=== PATIENT | female | born 1980 | race Hispanic/Latino ===

== ENCOUNTER 2017-11-22 02:07 | Emergency (ER) | payer OTHER ==
[2017-11-22 02:56] LABS: Absolute Lymphocytes (CBC) 5.6 K/uL (0.7-4.9); Absolute Monocytes 0.7 K/uL (0.1-1.3); Absolute Neutrophil 6.7 K/uL (1.8-8.0); Basophils % 0.9 % (0-1.3); Eosinophils % 2.7 % (0-4.4); Hematocrit 32.7 % (36.0-45.0); Lymphocytes % 41.7 % (15.3-44.8); MCH 24.8 pg (27.0-35.0); MCV 78.7 fL (80-100); MPV 7.3 fL (7.6-11.3); Monocytes % 5.5 % (3.3-12.3); RBC Red Blood Cell Count 4.16 M/uL (3.86-4.86)
[2017-11-22] MEDS ORDERED: NA CHLORIDE 0.9% 1,000 ML ONE ×2 (02:56→04:27)
[2017-11-22 03:10] LABS: Albumin 4.1 g/dL (3.2-5.5); Bilirubin Total 0.2 mg/dL (0.3-1.2); Protein, Total 7.5 g/dL (6.0-8.3)
[2017-11-22] MEDS ORDERED: MORPHINE 4 MG/ML SYR ONE (03:33)
[2017-11-22] MEDS ORDERED: ONDANSETRON 4 MG/2 ML VIAL ONE (03:33)
[2017-11-22 04:21] LABS: Potassium 2.9 mEq/L (3.6-5.0)
[2017-11-22] MEDS ORDERED: POTASSIUM CL SA 10 MEQ TAB PO ONE (04:27)
--- NOTE | 2017-11-22 05:06 | EDPHYS ---
Physician Documentation [facility] Name: Shelby Schaefer Age: 37 yrs Sex: Female : 1980 Arrival Date: 11/22/2017 Time: 02:08 Bed 20 Private MD: ED Physician Mansoor Benoit HPI: 11/22 06:10 This 37 yrs old Female presents to ER via Ambulatory with complaints of tw4 Vaginal Bleeding. 06:11 The patient presents with vaginal bleeding that is heavy. Onset: The symptoms/episode tw4 began/occurred 2 week(s) ago. Modifying factors: The symptoms are alleviated by nothing, the symptoms are aggravated by nothing. Associated signs and symptoms: The patient has no apparent associated signs or symptoms. Severity of symptoms: At their worst the symptoms were moderate, in the emergency department the symptoms are unchanged. The patient has not experienced similar symptoms in the past. 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 - Social history:: Smoking status: Patient/guardian denies using tobacco, Patient/guardian denies using alcohol, street drugs. ROS: 06:11 Positive for vaginal bleeding, Negative for urinary frequency, hematuria, pelvic tw4 pain, flank pain, burning with urination, difficulty urinating, vaginal itching, menstrual abnormality. 06:11 Constitutional: Negative for fever, chills, and weight loss, Cardiovascular: Negative for chest pain, palpitations, and edema, Respiratory: Negative for shortness of breath, cough, wheezing, and pleuritic chest pain, Abdomen/GI: Negative for abdominal pain, nausea, vomiting, diarrhea, and constipation, MS/Extremity: Negative for injury and deformity, Skin: Negative for injury, rash, and discoloration. Exam: 06:11 Constitutional: This is a well developed, well nourished patient who is awake, alert, tw4 and in no acute distress. Head/Face: Normocephalic, atraumatic. Chest/axilla: Normal chest wall appearance and motion. Nontender with no deformity. No lesions are appreciated. Cardiovascular: Regular rate and rhythm with a normal S1 and S2. No gallops, murmurs, or rubs. Normal PMI, no JVD. No pulse deficits. Respiratory: Lungs have equal breath sounds bilaterally, clear to auscultation and percussion. No rales, rhonchi or wheezes noted. No increased work of breathing, no retractions or nasal flaring. Abdomen/GI: Soft, non-tender, with normal bowel sounds. No distension or tympany. No guarding or rebound. No evidence of tenderness throughout. MS/ Extremity: Pulses equal, no cyanosis. Neurovascular intact. Full, normal range of motion. Neuro: Awake and alert, GCS 15, oriented to person, place, time, and situation. Cranial nerves II-XII grossly intact. Motor strength 5/5 in all extremities. Sensory grossly intact. Cerebellar exam normal. Normal gait. Vital Signs: 02:35 BP 161 / 79; Pulse 83; Resp 20 S; Temp 98.5(O); Pulse Ox 97% on R/A; Weight 67.13 kg bb (R); Height 5 ft. 4 in. (162.56 cm) (R); Pain 0/10; 03:40 BP 122 / 96; Pulse 88; Resp 18 S; Pulse Ox 98% on R/A; Pain 8/10; jd3 03:58 Pain 0/10; jd3 04:10 BP 145 / 84 Supine; Pulse 77; Pulse Ox 100% on R/A; jd3 04:13 BP 152 / 90 Sitting; Pulse 86; Pulse Ox 100% on R/A; jd3 04:15 BP 160 / 69 Standing; Pulse 90; Resp 17 S; Pulse Ox 100% on R/A; Pain 0/10; jd3 05:30 BP 141 / 73; Pulse 87; Resp 17 S; Pulse Ox 100% on R/A; Pain 0/10; jd3 02:35 Body Mass Index 25.40 (67.13 kg, 162.56 cm) bb MDM: 02:31 Patient medically screened. tw4 06:11 Differential diagnosis: dysmenorrhea. Data reviewed: vital signs, nurses notes. Data tw4 interpreted: satellite project site monitor: rhythm is normal sinus rhythm. Counseling: I had a detailed discussion with the patient and/or guardian regarding: the historical points, exam findings, and any diagnostic results supporting the discharge/admit diagnosis. Counseling: I had a detailed discussion with the patient and/or guardian regarding: lab results. Special discussion: Based on the patient's Hx, exam, and Dx evaluation, there is no indication for emergent surgery or inpatient Tx. It is understood by the patient/guardian that if the Sx's persist or worsen they need to return immediately for re-evaluation. I discussed with the patient/guardian in detail that at this point there is no indication for admission to the hospital. It is understood, however, that if the symptoms persist or worsen the patient needs to return immediately for re-evaluation. 11/22 02:31 Order name: CBC with Diff tw4 11/22 02:31 Order name: CMP tw4 11/22 02:31 Order name: PT-INR; Complete Time: 05:04 tw4 11/22 02:31 Order name: Ptt, Activated; Complete Time: 05:04 tw4 11/22 02:31 Order name: CBC with Automated Diff; Complete Time: 03:46 EDMS 11/22 03:46 Interpretation: Abnormal: WBC 13.5; HGB 10.3; HCT 32.7; MCV 78.7; MCH 24.8; MCHC 31.5; tw4 PLT 427; RDW 17.3; MPV 7.3; LYMA 5.6. 11/22 02:31 Order name: Comprehensive Metabolic Panel; Complete Time: 05:04 EDMS 11/22 05:04 Interpretation: Normal except: GLUC 145; GFR 84; BILIT 0.2; K 2.9. tw4 11/22 02:37 Order name: IV Saline Lock; Complete Time: 02:52 jd3 Administered Medications: 03:04 Drug: NS 0.9% 1000 ml Route: IV; Rate: 1 bolus; Site: right antecubital; jd3 05:29 Follow up: Response: No adverse reaction; IV Status: Completed infusion; IV Intake: jd3 1000ml 03:40 Drug: morphine 2 mg Route: IVP; Site: right antecubital; jd3 03:58 Follow up: Pain 0/10 Adult; Response: No adverse reaction; Pain is decreased jd3 03:40 Drug: Zofran 4 mg Route: IVP; Site: right antecubital; jd3 03:58 Follow up: Response: No adverse reaction jd3 04:36 Drug: Potassium Chloride 40 mEq Route: PO; jd3 05:20 Follow up: Response: No adverse reaction jd3 04:36 Drug: NS 0.9% 1000 ml Route: IV; Rate: 1 bolus; Site: right antecubital; jd3 05:21 Follow up: Response: No adverse reaction; IV Status: Completed infusion; IV Intake: jd3 1000ml Disposition: 11/22/17 05:06 Discharged to Home. Impression: Dysmenorrhea, unspecified, Hypokalemia. - Condition is Stable. - Discharge Instructions: Anemia, Nonspecific, Potassium Content of Foods, Dysmenorrhea, Dysmenorrhea, [id number], Hypokalemia. - Medication Reconciliation Form, Thank You Letter, Antibiotic Education, Prescription Opioid Use form. - Follow up: Private Physician; When: As needed; Reason: Recheck today's complaints, Continuance of care, Re-evaluation by your physician. - Problem is new. - Symptoms have improved. Signatures: Dispatcher [employer] Herminia Burns RN RN bb Davies, Jonathon, RN RN jd3 Wadley, Terrence, MD MD 4 Corrections: (The following items were deleted from the chart) 03:47 03:46 WBC 13.5; HGB 10.3; HCT 32.7; MCV 78.7; MCH 24.8; MCHC 31.5; PLT 427; RDW 17.3; tw4 MPV 7.3; LYMA 5.6. tw4 03:47 03:46 Normal except: WBC 13.5; HGB 10.3; HCT 32.7; MCV 78.7; MCH 24.8; MCHC 31.5; PLT tw4 427; RDW 17.3; MPV 7.3; LYMA 5.6. tw4 05:04 05:04 GLUC 145; GFR 84; BILIT 0.2; K 2.9. tw4 4
--- NOTE | 2017-11-22 05:06 | ER ---
Nurse's Notes [facility] Name: Shelby Schaefer Age: 37 yrs Sex: Female : 1980 Arrival Date: 11/22/2017 Time: 02:08 Bed 20 Private MD: Diagnosis: Dysmenorrhea, unspecified;Hypokalemia Presentation: 11/22 02:31 Presenting complaint: Patient states: she has been having vaginal bleeding for 2 weeks bb but tonight it became unusually heavy with clots the size of her fist she has changed her pad 5 times in the last 3 hours. Pt became sweaty, and shaky, pt also had depo shot approx 2 weeks ago. Transition of care: patient was not received from another setting of care. Onset of symptoms was November 22, 2017. Care prior to arrival: None. 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 - Social history:: Smoking status: Patient/guardian denies using tobacco, Patient/guardian denies using alcohol, street drugs. Screenin:00 Abuse screen: Denies threats or abuse. Nutritional screening: No deficits noted. jd3 Tuberculosis screening: No symptoms or risk factors identified. Fall Risk IV access (20 points). Gait- Normal/Bed Rest/Wheelchair (0 pts) Total Mcghee Fall Scale indicates No Risk (0-24 pts). Assessment: 02:35 General: Appears uncomfortable, Behavior is cooperative, appropriate for age, anxious. jd3 Pain: Complains of pain in right lower quadrant Quality of pain is described as crampy. Neuro: Level of Consciousness is awake, alert, obeys commands, Oriented to person, place, time, situation, Appropriate for age. Cardiovascular: Heart tones S1 S2 present Capillary refill < 3 seconds Patient's skin is warm and dry. Respiratory: Airway is patent Respiratory effort is even, unlabored, Respiratory pattern is regular, symmetrical, Breath sounds are clear bilaterally. GI: Abdomen is round Bowel sounds present X 4 quads. Abd is soft Abdomen is tender to palpation in right lower quadrant Reports nausea. : Urine is blood tinged, Reports vaginal bleeding that is with clots, heavy flow. EENT: No signs and/or symptoms were reported regarding the EENT system. Derm: Skin is intact, Skin is dry, Skin is normal, Skin temperature is warm. Musculoskeletal: Circulation, motion, and sensation intact. Range of motion: intact in all extremities. 03:40 Reassessment: Patient appears in no apparent distress at this time. Patient and/or jd3 family updated on plan of care and expected duration. Pain level reassessed. Patient is alert, oriented x 3, equal unlabored respirations, skin warm/dry/pink. pt reporting abdominal pain, provider notified, new orders received, see MAR. 04:00 Reassessment: Patient appears in no apparent distress at this time. Patient and/or jd3 family updated on plan of care and expected duration. Pain level reassessed. Patient is alert, oriented x 3, equal unlabored respirations, skin warm/dry/pink. Patient denies pain at this time. 04:23 Reassessment: Patient appears in no apparent distress at this time. Patient and/or jd3 family updated on plan of care and expected duration. Pain level reassessed. Patient is alert, oriented x 3, equal unlabored respirations, skin warm/dry/pink. Patient denies pain at this time. 05:10 Reassessment: Patient appears in no apparent distress at this time. Patient and/or jd3 family updated on plan of care and expected duration. Pain level reassessed. Patient is alert, oriented x 3, equal unlabored respirations, skin warm/dry/pink. provider at bedside discussing plan of care. 05:28 Reassessment: Patient appears in no apparent distress at this time. Patient and/or jd3 family updated on plan of care and expected duration. Pain level reassessed. Patient is alert, oriented x 3, equal unlabored respirations, skin warm/dry/pink. pt reported understanding of discharge instructions, even and steady gait upon discharge Patient states feeling better. Vital Signs: 02:35 BP 161 / 79; Pulse 83; Resp 20 S; Temp 98.5(O); Pulse Ox 97% on R/A; Weight 67.13 kg bb (R); Height 5 ft. 4 in. (162.56 cm) (R); Pain 0/10; 03:40 BP 122 / 96; Pulse 88; Resp 18 S; Pulse Ox 98% on R/A; Pain 8/10; jd3 03:58 Pain 0/10; jd3 04:10 BP 145 / 84 Supine; Pulse 77; Pulse Ox 100% on R/A; jd3 04:13 BP 152 / 90 Sitting; Pulse 86; Pulse Ox 100% on R/A; jd3 04:15 BP 160 / 69 Standing; Pulse 90; Resp 17 S; Pulse Ox 100% on R/A; Pain 0/10; jd3 05:30 BP 141 / 73; Pulse 87; Resp 17 S; Pulse Ox 100% on R/A; Pain 0/10; jd3 02:35 Body Mass Index 25.40 (67.13 kg, 162.56 cm) bb ED Course: 02:08 Patient arrived in ED. am2 02:31 Mansoor Benoit MD is Attending Physician. tw4 02:34 Triage completed. bb 02:35 Arm band placed on Patient placed in an exam room, on a stretcher, on pulse oximetry. bb Family accompanied patient. 02:37 Jairon Stern, RN is Primary Nurse. jd3 02:45 Inserted saline lock: 20 gauge in right antecubital area, using aseptic technique. jd3 Blood collected. 03:00 Patient has correct armband on for positive identification. Bed in low position. Call jd3 light in reach. Side rails up X 1. Adult w/ patient. 03:05 Noise minimized. Lights dimmed. Warm blanket given. Verbal reassurance given. jd3 04:28 Notified ED physician of a critical lab result(s). potassium of 2.9. jd3 05:10 No provider procedures requiring assistance completed. jd3 05:28 IV discontinued, intact, bleeding controlled, No redness/swelling at site. Pressure jd3 dressing applied. Administered Medications: 03:04 Drug: NS 0.9% 1000 ml Route: IV; Rate: 1 bolus; Site: right antecubital; jd3 05:29 Follow up: Response: No adverse reaction; IV Status: Completed infusion; IV Intake: jd3 1000ml 03:40 Drug: morphine 2 mg Route: IVP; Site: right antecubital; jd3 03:58 Follow up: Pain 0/10 Adult; Response: No adverse reaction; Pain is decreased jd3 03:40 Drug: Zofran 4 mg Route: IVP; Site: right antecubital; jd3 03:58 Follow up: Response: No adverse reaction jd3 04:36 Drug: Potassium Chloride 40 mEq Route: PO; jd3 05:20 Follow up: Response: No adverse reaction jd3 04:36 Drug: NS 0.9% 1000 ml Route: IV; Rate: 1 bolus; Site: right antecubital; jd3 05:21 Follow up: Response: No adverse reaction; IV Status: Completed infusion; IV Intake: jd3 1000ml Intake: 05:21 IV: 1000ml; Total: 1000ml. jd3 05:29 IV: 1000ml; Total: 2000ml. jd3 Outcome: 05:06 Discharge ordered by . tw4 05:27 Discharged to home ambulatory, with family. jd3 05:27 Condition: stable 05:27 Discharge instructions given to patient, family, Instructed on discharge instructions, follow up and referral plans. Demonstrated understanding of instructions, follow-up care. 05:29 Patient left the ED. jd3 Signatures: Herminia Marin RN RN Bianca Orellana Jonathon, RN RN jd3 Mansoor Benoit MD MD tw4 Corrections: (The following items were deleted from the chart) 02:37 02:31 Presenting complaint: Patient states: she has been having vaginal bleeding for 2 bb weeks but tonight it became unusually heavy with clots the size of her fist she has changed her pad 5 times in the last 3 hours. Pt became sweaty, and shaky. bb 04:23 04:13 BP 160 / 69 Standing; Pulse 90bpm; Resp 17bpm; Spontaneous; Pulse Ox 100% RA; jd3 Pain 0/10; jd3 04:23 04:13 BP 152 / 90 Sitting; Pulse 86bpm; Pulse Ox 100% RA; jd3 jd3
== END 2017-11-22 05:29 | disposition home or self-care (01) ==
LOC: ER 02:07
DX: N94.6 Dysmenorrhea, unspecified (principal); E87.6 Hypokalemia
CPT/HCPCS: 36415; 80053; 85025; 85610; 85730; 96361; 96374; 96375; 99284; J2405; J7030

== ENCOUNTER 2018-04-13 06:21 | Day surgery (SDC) | payer OTHER ==
[2018-04-10 16:22] LABS: Urine Appearance TURBID; Urine Bilirubin NEGATIVE (NEG); Urine Blood NEGATIVE (NEG); Urine Color YELLOW; Urine Glucose NEGATIVE (NEG); Urine Protein NEGATIVE (NEG); Urine Urobilinogen 0.2 mg/dL (0.2-1.0); Urine pH 7.5 (5.0-7.0)
[2018-04-10 16:25] LABS: Urine Microscopic Reflex ORDER UMIC
[2018-04-10 16:31] LABS: Urine Amorphous Sediment 3+ /HPF (NONE SEEN); Urine Bacteria <20 /HPF (<20); Urine Culture Reflex Order NOT NEEDED; Urine RBC NONE SEEN /HPF (NONE SEEN)
[2018-04-10 16:35] LABS: Absolute Lymphocytes (CBC) 2.8 K/uL (0.7-4.9); Absolute Monocytes 0.8 K/uL (0.1-1.3); Absolute Neutrophil 9.3 K/uL (1.8-8.0); Basophils % 0.6 % (0-1.3); Eosinophils % 1.6 % (0-4.4); Hematocrit 34.7 % (36.0-45.0); Lymphocytes % 21.4 % (15.3-44.8); MCH 27.8 pg (27.0-35.0); MCV 85.2 fL (80-100); MPV 7.2 fL (7.6-11.3); Monocytes % 5.7 % (3.3-12.3); RBC Red Blood Cell Count 4.07 M/uL (3.86-4.86)
[2018-04-13] MEDS ORDERED: Ringers Lactate 1,000 ML IV ONE (06:43)
[2018-04-13] MEDS ORDERED: SCOPOLAMINE HYDROBROMIDE PATCH TD ONE (06:44)
[2018-04-13 06:45] LABS: Specific Gravity 1.015 (1.005-1.030)
[2018-04-13] MEDS ORDERED: MIDAZOLAM HCL 2 MG/2 ML INJ ONE ×2 (07:10→11:50)
[2018-04-13] MEDS ORDERED: FENTANYL CITR 250 MCG/5 ML ONE ×2 (07:10→09:32)
[2018-04-13] MEDS ORDERED: PROPOFOL 200 MG/20 ML VIAL IV ONE (07:10)
[2018-04-13] MEDS ORDERED: ROCURONIUM 50 MG/5 ML VIAL IV ONE (07:10)
[2018-04-13] MEDS ORDERED: LIDOCAINE 1% MPF 2 ML AMPULE ONE (07:11)
[2018-04-13] MEDS ORDERED: ONDANSETRON HCL 40 MG/20 ML VIAL ONE (07:11)
[2018-04-13] MEDS: CEFAZOLIN/SWI 1gm 1 GM/10 ML SYR ONE ×2 (07:12→08:10)
[2018-04-13] MEDS: NA CHLORIDE 0.9% 1,000 ML ONE ×2 (07:12→08:10)
[2018-04-13] MEDS ORDERED: DEXAMETHASONE 10 MG/ML VIAL ONE ×2 (07:17→10:48)
[2018-04-13] MEDS: Ringers Lactate 1,000 ML IV ONE ×4 (10:15→10:54)
[2018-04-13] MEDS ORDERED: KETOROLAC 30 MG/ML INJ ONE (10:29)
[2018-04-13] MEDS: MEPERIDINE HCL 50 MG/ML AMP ONE ×4 (11:24→11:39)
[2018-04-13] MEDS ORDERED: HYDROCODONE/APAP 5/325 MG TAB ONE (13:17)
--- NOTE | 2018-04-13 14:11 | OP ---
Date of Procedure: 04/13/2018 Surgeon: Amanda oGnzalez MD Vocational Rehabilitation Consultant: Francisca Hickey. Preoperative Diagnoses: Heavy menstrual bleeding and fibroid uterus, dysmenorrhea. Postoperative Diagnoses: Heavy menstrual bleeding and fibroid uterus, dysmenorrhea. Procedures Performed: Total laparoscopic hysterectomy, bilateral salpingectomy, bilateral ovarian pe xy and vaginal morcellation of the uterine specimen. Anesthesia: General endotracheal. Specimens: Uterus, bilateral tubes. Complications: None. Drains: None. Condition: The patient is stable. Findings: Uterus was enlarged about 12-week size with a right broad ligament fibroid. The entire ut erus along with the fibroid on the side completely encompassed the pelvic cavity. Ovaries were nayla l, however. The tubes appeared to be unremarkable as well. No evidence of any endometriosis. After vaginal morcellation, there was excellent hemostasis and the uterine specimen after being morcellate d all the pieces and the cervix were all sent for permanent pathology along with the tubes. Indications: The patient is a 37-year-old, who presented with bleeding, possible ovarian cyst, so sh e was evaluated since she failed to be controlled on Depo-progesterone. She also had right lower shwetha drant pain and on examination, there was suspicion for right adnexal mass. So transvaginal ultrasoun d was done, which showed a 5 cm right lateral fibroid, 5 cm fibroid within the uterus. No other abno rmalities were seen. The endometrium was sampled with hysteroscopy, D and C in the office. The samp ling had no atypia or malignancy pain. Then the patient was counseled on all her options. She had p referred to have a hysterectomy, myomectomy was discussed, uterine artery embolization was discussed, but her bleeding was not very well controlled in terms of the cycling as well as the flow and so dec ided that she wanted to go ahead with hysterectomy. There was also concern that this right broad ligament leiomyoma could possibly be the right adnexal m ass and if this was, then we discussed about removing the mass or cyst or removing the ovary. Otherw ise, the ovarian preservation on both sides was planned and the patient understood and consented. Description Of Procedure: After informed consent was verified, she was taken back to the OR, placed in a supine fashion on the operating table. After 1 g of Ancef was given. She was placed in a dorsa l lithotomy position. Pelvic exam was performed uterus about 12 week size uterus with a lateral exte nsion to the right with her fibroid. After abdomen, vulva, vagina, and perineum were prepped and draped in a sterile fashion, Callahan was pl aced to drain the bladder. Arms were tucked by the side. After positioning was checked and appropri ate and time-out was done, the case was started. Callahan was placed to drain the bladder. A large VCa re introduced into the uterus all the way to [address] An LR bag, emptied 300, was attac hed using cysto tubing to the Callahan catheter for drainage as well as retrograde filling as needed. A 1 cm infraumbilical incision was made with a scalpel using the open laparoscopy technique. The fas soumya was incised. Both the edges were picked up, 0 Vicryl tags were placed. Peritoneum entered sharp ly. S retractors placed. Rajesh introduced. Site of entry checked and unremarkable. The liver and gallbladder appeared to be unremarkable as well. No upper abdominal peritoneal surfaces, omentum wi th any endometriosis. The patient was placed in Trendelenburg position after 5 mm left lower quadran t, right lower quadrant and 10 mm suprapubic ports were placed under direct vision. After visualizing the fibroids as well as the ovaries and both ureters, which were undistorted and le ft in their place, it appeared that the anterior right lateral broad ligament fibroid had inflammator y changes on the surface, possibly from degeneration and there were adhesions to the bladder peritone um on the right side. Other than this, no other distortion was present. The adhesions were taken do wn with the help of the 5 mm curved tip LigaSure. Then, after thorough inspection, hysterectomy was started. The broad ligament below the level of the left round ligament was picked up and incised sharply and d issection carried all the way over the bladder peritoneum across the cervix onto the opposite side. Then I went back and they took the left tube out, by performing a salpingectomy through the mesosalpi nx using the LigaSure. Once this was completely removed, then utero-ovarian ligament was taken down, round ligament taken down. Posterior broad ligament was dissected all the way to the lateral aspect of the left uterosacral ligament. There was a small cystic mass here that appeared to be inflammato ry, this was left in place, but the ureter was lateral to it. The uterine artery was cleaned up by c leaning out the broad ligament better. The incision was kept on the peritoneum above the level of th e attachment of the uterosacral ligaments to the vaginal apex. We went onto the opposite side, took the utero-ovarian ligament down, then the mesosalpinx had to be taken down from the cornual end all the way to the fimbriated end of the tube. This was left alone a t this point, still attached at the fimbriated end. Then, the utero-ovarian ligament was taken down. Then, the round ligament was taken down, and the peritoneum anteriorly was opened up and connected to the opposite side of the bladder flap and posteriorly, the peritoneum was dissected to the level o f the left uterosacral. With the fibroid here, it was difficult because of all the vessels that were present. We had to do some meticulous dissection with push-spread technique to get to the base of t he vessels and not stay lateral. Once this was done, we made sure that the vascular supply of the fi broid was all taken down and retracted medially. Then the bladder flap was created with a monopolar hook blade and the vesicovaginal space was entered and the bladder pushed down and least 3 cm. Then, a window was made in the medial aspect of the uterine vessels on the right side with the help of the monopolar and with the help of the basket tip bipolar, all the vessels were cauterized and taken luís n with the LigaSure. The cardinal ligaments were cauterized with the bipolar basket tip and cut with the help of scissors on the opposite side. Similar dissection was performed taking down the bladder flap and taking down the vessels by creating a window and taking down the cardinal ligaments. The u terosacral ligament attachments to the apex of the vagina were not detached and stayed above the edmundo chment. Circumferential colpotomy was performed with a monopolar hook blade keeping the attachment i ntact and the specimen detached. Two Allis clamps were placed to pull the cervical specimen down into the vagina. Then, I changed over and went down to morcellate the uterus with the help of a #10-blade. Once this was done in a circumferential fashion mostly, there was a large 5 cm fibroid in the posterior wall, s o this had to be delivered out using mass clamps and morcellated out. Once this was done, the uterus split up. Then I was able to slide the broad ligament fibroid out as well. Once these were both pu lled out the vaginal occlusion bulb was placed and the area was draped, changed over my gown and glov es, then came back on the top. Thorough irrigation and suction were performed. Both tubes were deta ched completely and handed off for pathology. Thorough irrigation, suction showed that there was exc ellent hemostasis at the level of the vaginal cuff and the sidewalls. After thorough irrigation, suc tion, the vaginal cuff was closed with the help of 2 simple sutures at both ends and 3 [id number] ht in the middle having good apposition. I had dissected the ovaries free from the fibroids and broad ligament, the round ligament enough so t hat it was a high risk for the ovaries if they had a cyst to have torsion because they were isolated on the infundibulopelvic ligament pedicle, so to avoid the risk of future torsion, it was decided to do the ovarian pexy. There were more dissection hanging free due to the lateral extension of the fib roids both on the right and the left, so I think the problem arose as a consequence of full dissectio n. With the help of 3-0 Vicryl in a continuous running fashion, the lateral peritoneum of the broad liga ment and the lateral aspect of the IP were all the sutured together making sure we did not catch any vessels underneath. The ureter was free, had normal peristalsis on both sides. Once this was finish ed, and there was no window left for internal herniation, then this was left alone. Then, on the opp osite side, there was a simple eehvro-vg-euwft stitch that needed to be placed with 2-0 Vicryl to laurent ttached to the base of the round ligament. Once this was done, there was excellent hemostasis on bot h sides. Thorough irrigation, suction performed. Pictures taken. No evidence of electrical, mechan ical, or thermal injury to the ureters. The trocars removed under direct vision. Gas was desufflate d. The umbilical trocar removed and the fascia closed with the help of 0 Vicryl in a yznflq-[id number]-vdkjg fashion and simple 0 Vicryl stitch at the suprapubic site. All skin incisions closed with the help of interrupted Monocryl at the 10 mm sites and the rest all closed with Dermabond. The vaginal occlu asia, bulb, Callahan were all removed. The patient was cleaned up. She was recovered from anesthesia an d taken to PACU in stable condition. Instrument, needle, and sponge counts x3 were correct at the en d of the case. She will follow up with me in 1 week. CANDIS Voice ID: [id number] Report ID: [id number]
== END 2018-04-13 14:00 | disposition home or self-care (01) ==
LOC: OR 06:21
PROVIDERS: ATTEND Obstetrics & Gynecology
PROC: 0UT74ZZ Resection of Bilateral Fallopian Tubes, Percutaneous Endoscopic Approach (ICD-10-PCS; 2018-04-13)
PROC: 0US24ZZ Reposition Bilateral Ovaries, Percutaneous Endoscopic Approach (ICD-10-PCS; 2018-04-13)
PROC: 0UT94ZZ Resection of Uterus, Percutaneous Endoscopic Approach (ICD-10-PCS; principal; 2018-04-13 07:30)
DX: N92.1 Excessive and frequent menstruation with irregular cycle (principal); N94.6 Dysmenorrhea, unspecified; D25.1 Intramural leiomyoma of uterus; D25.2 Subserosal leiomyoma of uterus; Z83.3 Family history of diabetes mellitus; Z82.49 Family history of ischemic heart disease and other diseases of the circulatory system; Z82.3 Family history of stroke
CPT/HCPCS: 36415; 81003; 81015; 81025; 85025; 86850; 86900; 86901; 88307; J0690; J1100; J2001; J2175; J2250; J2405; J7030

== ENCOUNTER 2024-12-14 18:45 | Emergency (ER) | payer OTHER ==
[2024-12-14] MEDS ORDERED: HYDROCODONE/APAP 5/325 MG TAB ONE (19:25)
[2024-12-14] MEDS ORDERED: LORAZEPAM 1 MG TABLET ONE (19:25)
[2024-12-14] MEDS ORDERED: LIDOCAINE 2% W/EPI 1:200,000 MPF 20 ML VIAL IM ONE (20:33)
--- NOTE | 2024-12-14 20:36 | RAD REPORT ---
EXAMINATION: Tib Fib Left CLINICAL INDICATION: Leg pain FINDINGS: No fracture seen.
--- NOTE | 2024-12-14 20:44 | RAD REPORT ---
EXAM: CT brain without contrast HISTORY: Head injury status post fall COMPARISON: None TECHNIQUE: Multiple contiguous axial images were obtained and a CT of the brain without contrast.. Sagittal and coronal reconstruction performed. Automated exposure control, adjustment of the mA and/or kV according to patient size, and/or iterative reconstruction. Unless otherwise specified, incidental f indings do not require dedicated imaging follow-up FINDINGS: Right supraorbital laceration. Evaluation of portions of the medial right frontal lobe limited secondary to beam hardening artifact. An intracranial bleed is not seen Ventricles are normal caliber No extra-axial fluid collection noted No significant hypodensity within the brain No fluid within the visualized sinuses or mastoids noted. IMPRESSION: No acute intracranial abnormality noted. If the patient continues to have symptoms to suggest an acute intracranial abnormality then MRI of th e brain would be recommended.
--- NOTE | 2024-12-14 22:18 | EDPHYS ---
Physician Documentation [facility] Name: Shelby Schaefer Age: 44 yrs Sex: Female : 1980 Arrival Date: 12/14/2024 Time: 18:45 Bed 19 Private MD: ED Physician HPI: 12/14 19:20 This 44 yrs old Female presents to ER via Ambulatory with complaints of Head cp Injury-Adult, Laceration To Forehead. 19:20 The patient or guardian reports injury, a laceration, clean. The complaints affect the cp above right eye. Context of injury: resulted from a fall, from small stool causing her to strike head and face against floor. Onset: The symptoms/episode began/occurred just prior to arrival. 19:20 Associated signs and symptoms: Loss of consciousness: This patient did not experience cp any loss of consciousness. Pertinent positives: headache, Pertinent negatives: neck pain, seizure, chest pain, abdominal pain. Historical: - Allergies: 18:57 No Known Allergies; ap3 - PMHx: 18:57 None; ap3 - Immunization history:: Client reports receiving the 2nd dose of the Covid vaccine. - Infectious Disease History:: Denies. - Social history:: Smoking status: Patient denies any tobacco usage or history of. ROS: 19:25 Neuro: Positive for headache, Negative for altered mental status, dizziness, loss of cp consciousness, numbness, syncope, near syncope, weakness, 19:25 Cardiovascular: Negative for chest pain, palpitations, cp 19:25 Skin: Positive for laceration(s), of the above right eye, 19:25 Eyes: Negative for injury, pain, redness, and discharge, cp 19:25 Constitutional: Negative for body aches, chills, fever, poor PO intake, 19:25 Neck: Negative for pain with movement, pain at rest, stiffness, 19:25 Respiratory: Negative for cough, shortness of breath, wheezing, 19:25 Abdomen/GI: Negative for abdominal pain, vomiting, diarrhea, constipation, 19:25 Back: Negative for pain at rest, pain with movement, 19:25 All other systems are negative, cp Exam: 19:30 Constitutional: The patient appears in no acute distress, alert, awake, cp non-diaphoretic, well developed, well nourished, uncomfortable, 19:30 Head/face: Noted is ecchymosis, that is mild, a laceration(s), that is deep, that is cp linear, of the above right eye, swelling, that is mild, 19:30 Eyes: Pupils: equal, round, and reactive to light and accomodation, Extraocular movements: intact throughout, Conjunctiva: normal, no exudate, no injection, Lids and lashes: appear normal, bilaterally, 19:30 ENT: External ear(s): are unremarkable, Nose: is normal, Mouth: Lips: moist, Oral mucosa: moist, Posterior pharynx: Airway: no evidence of obstruction, patent, Dental exam: no acute changes, 19:30 Neck: C-spine: vertebral tenderness, that is mild, crepitus, is not appreciated, ROM/movement: is normal, is supple, without pain, no range of motions limitations, 19:30 Chest/axilla: Inspection: normal, 19:30 Cardiovascular: Rate: normal, Rhythm: regular, 19:30 Respiratory: the patient does not display signs of respiratory distress, Respirations: normal, no use of accessory muscles, no retractions, labored breathing, is not present, Breath sounds: are clear throughout, no decreased breath sounds, no stridor, no wheezing, 19:30 Abdomen/GI: Inspection: abdomen appears normal, Palpation: abdomen is soft and non-tender, in all quadrants, 19:30 Back: pain, is absent, ROM is normal, vertebral tenderness, is not appreciated, 19:30 Musculoskeletal/extremity: Extremities: noted in the left lower leg: ecchymosis, swelling, tenderness, There is no evidence of decreased ROM, deformity, 19:30 Neuro: Orientation: to person, place \T\ time. Mentation: is normal, Cerebellar function: is grossly normal, Motor: moves all fours, strength is normal, Sensation: is normal, Vital Signs: 18:55 BP 195 / 94; Pulse 89; Resp 17; Temp 98.7; Pulse Ox 99% ; Weight 65.77 kg; Height 5 ft. ap3 4 in. ; Pain 10/10; 19:14 BP 166 / 86; Pulse 71; Resp 17; Pulse Ox 98% on R/A; dd2 20:15 BP 180 / 94; Pulse 68; Resp 18; Pulse Ox 100% on R/A; dd2 21:00 BP 173 / 94; Pulse 79; Resp 18; Pulse Ox 100% on R/A; dd2 22:00 BP 112 / 57; Pulse 52; Resp 16; Pulse Ox 100% on R/A; dd2 22:41 BP 137 / 82; Pulse 75; Resp 16; Pulse Ox 100% on R/A; dd2 18:55 Body Mass Index 24.89 (65.77 kg, 162.56 cm) ap3 18:55 Pain Scale: Adult ap3 [place] Coma Score: 18:55 Eye Response: spontaneous(4). Motor Response: obeys commands(6). Verbal Response: ap3 oriented(5). Total: 15. 19:14 Eye Response: spontaneous(4). Motor Response: obeys commands(6). Verbal Response: dd2 oriented(5). Total: 15. 19:20 Eye Response: spontaneous(4). Motor Response: obeys commands(6). Verbal Response: cp oriented(5). Total: 15. Laceration: 22:15 Wound Repair of 3cm ( 1.2in ) subcutaneous laceration to above right eye. Linear cp shaped.. Distal neuro/vascular/tendon intact. Anesthesia: Wound infiltrated with 8 mls of 2% lidocaine. Wound prep: Simple cleansing by me. Subcutaneous tissue closed with 5 5-0 Vicryl using interrupted sutures and sterile technique. Skin closed with 6 1-0 Prolene using interrupted sutures and sterile technique. Dressed with Bacitracin, 4x4's. Patient tolerated well. MDM: 22:17 Medical Screening Exam initiated cp 22:17 Data reviewed: vital signs, nurses notes, radiologic studies, CT scan, plain films, and cp as a result, I will discharge patient. 22:17 Differential diagnosis: Contusion of Hematoma on Laceration of Intracranial bleed- cp Concussion cerebral contusion. I considered the following discharge prescriptions or medication management in the emergency department Medications were administered in the Emergency Department. See MAR. Counseling: I had a detailed discussion with the patient and/or guardian regarding the historical points, exam findings, and any diagnostic results supporting the discharge/admit diagnosis, radiology results, to return to the emergency department if symptoms worsen or persist or if there are any questions or concerns that arise at home. Response to treatment: the patient's symptoms have markedly improved after treatment, and as a result, I will discharge patient. Special discussion: Based on the patient's history, exam and DX evaluation, there is no indication for emergent intervention or inpatient TX. It is understood by the patient/guardian that if the SXs persist or worsen they need to return immediately for re-evaluation. 12/14 19:12 Order name: CT Head Brain wo Cont; Complete Time: 20:49 cp 12/14 19:12 Order name: XRAY Tib Fib LEFT; Complete Time: 20:49 cp 12/14 20:02 Order name: Dressing - Wound; Complete Time: 22:17 cp 12/14 20:02 Order name: Gloves, Sterile; Complete Time: 20:33 cp 12/14 20:02 Order name: Setup Suture Tray; Complete Time: 20:33 cp 12/14 22:15 Order name: Wound dressing; Complete Time: 22:35 cp Administered Medications: 19:34 Drug: HYDROcodone-acetaminophen PO 5 mg-325 mg 1 tabs PO once Route: PO; dd2 20:00 Follow up: Response: No adverse reaction dd2 19:34 Drug: LORazepam PO 1 mg PO once Route: PO; dd2 20:00 Follow up: Response: No adverse reaction dd2 22:17 Drug: Lidocaine Infiltration (2 %) 20 ml 5 ml Infiltration once; to bedside with dd2 epinephrine {Note: administered by pa. jaelyn} Volume: 5 ml; Route: Infiltration; Site: wound; 22:32 Follow up: Response: No adverse reaction dd2 Disposition: 12/16 18:47 Chart complete. cp Disposition Summary: 12/14/24 22:17 Discharge Ordered Notes: Location: Home cp Problem: new cp Symptoms: have improved cp Condition: Stable cp Diagnosis - Contusion of left lower leg cp - Laceration without foreign body of unspecified part of head cp Followup: cp - With: Private Physician - When: 7 - 10 days - Reason: Staple/Suture removal Discharge Instructions: - Discharge Summary Sheet cp - Contusion cp - Head Injury, Adult cp - Laceration Care, Adult cp Forms: - Medication Reconciliation Form cp - Antibiotic Education cp - Prescription Opioid Use cp - Patient Portal Instructions cp - Leadership Thank You Letter cp Prescriptions: - Ibuprofen 800 mg Oral Tablet - take 1 tablet ORAL route every 8 hours As needed take with food; 30 tablet; cp Refills: 0, Product Selection Permitted Signatures: Dispatcher [employer] EDMS Pete Hawkins PA PA cp Prokisch, Amanda, RN RN ap3 JOHNATHAN HOLDER RN RN dd2 Corrections: (The following items were deleted from the chart) 12/15 20:24 12/14 22:17 Laceration with foreign body of other part of head, initial encounter cp cp 12/16 18:46 12/14 19:30 Musculoskeletal/extremity: Exam is negative for decreased range of motion, cp deformity, injury, cp
--- NOTE | 2024-12-14 22:18 | ER ---
Nurse's Notes [facility] Name: Shelby Schaefer Age: 44 yrs Sex: Female : 1980 Arrival Date: 12/14/2024 Time: 18:45 Bed 19 Private MD: Diagnosis: Contusion of left lower leg;Laceration without foreign body of unspecified part of head Presentation: 12/14 18:55 Chief complaint: Patient states: she was cleaning her ceiling fan and standing on a ap3 stool when the stool came out from under her and she fell onto her face. patient presents with a laceration above her right eyebrow, and left lower leg pain. she denies any LOC. patient currently rates her pain as a 10/10 on the pain scale. Coronavirus screen: At this time, the client does not indicate any symptoms associated with coronavirus-19. Ebola Screen: No symptoms or risks identified at this time. Mechanism of Injury: The problem was sustained at home, resulted from a fall, from stool. Initial Sepsis Screen: Does the patient meet any 2 criteria? No. Patient's initial sepsis screen is negative. Does the patient have a suspected source of infection? No. Patient's initial sepsis screen is negative. Risk Assessment: Do you want to hurt yourself or someone else? Patient reports no desire to harm self or others. Onset of symptoms was December 14, 2024. Mechanism of Injury: Fall. Transition of care: patient was not received from another setting of care. 18:55 Method Of Arrival: Ambulatory ap3 18:55 Acuity: ELYSIA 3 ap3 Triage Assessment: 18:58 General: Appears uncomfortable, Behavior is calm, cooperative, appropriate for age. ap3 Pain: Complains of pain in face and left torres Pain currently is 10 out of 10 on a pain scale. Pain began suddenly. Neuro: Level of Consciousness is awake, alert, obeys commands, Oriented to person, place, time, situation, Appropriate for age Reports fall. Cardiovascular: Patient's skin is warm and dry. Respiratory: Airway is patent Respiratory effort is even, unlabored, Respiratory pattern is regular, symmetrical. Historical: - Allergies: 18:57 No Known Allergies; ap3 - PMHx: 18:57 None; ap3 - Immunization history:: Client reports receiving the 2nd dose of the Covid vaccine. - Infectious Disease History:: Denies. - Social history:: Smoking status: Patient denies any tobacco usage or history of. Screenin:59 Abuse screen: Denies threats or abuse. Nutritional screening: No deficits noted. ap3 Tuberculosis screening: No symptoms or risk factors identified. 19:25 [facility] ED Fall Risk Assessment (Adult) Confusion or Disorientation. [facility] ED Fall dd2 Risk Assessment (Adult) History of falling in the last 3 months, including since admission Yes- single mechanical fall (1 pt) Confusion or Disorientation No (0 pts) Intoxicated or Sedated No (0 pts) Impaired Gait No (0 pts) Mobility Assist Device Used No (0 pt) Altered Elimination No (0 pt) Score/Fall Risk Level 0 - 2 = Low Risk Oriented to surroundings, Maintained a safe environment, Educated pt \T\ family on fall prevention, incl call for assistance when getting out of bed, Assessed \T\ reinforced patient's understanding of fall precautions, Hourly rounding (assess needs \T\ fall precautionary measures) done. Assessment: 19:14 General: Appears in no apparent distress. uncomfortable, Behavior is cooperative, dd2 appropriate for age, crying. Pain: Complains of pain in outer aspect of right eyebrow and left torres Pain does not radiate. Pain currently is 10 out of 10 on a pain scale. Neuro: No deficits noted. Level of Consciousness is awake, alert, obeys commands, Oriented to person, place, time, situation, Appropriate for age. Cardiovascular: No deficits noted. Patient's skin is warm and dry. Respiratory: No deficits noted. Airway is patent Respiratory effort is even, unlabored, Respiratory pattern is regular, symmetrical. GI: No deficits noted. No signs and/or symptoms were reported involving the gastrointestinal system. : No deficits noted. No signs and/or symptoms were reported regarding the genitourinary system. EENT: No deficits noted. No signs and/or symptoms were reported regarding the EENT system. Derm: Wound noted outer aspect of right eyebrow Wound is laceration Bruising that is bright red, on outer aspect of right eyebrow, right supraorbital ridge and left torres Reports pain. Musculoskeletal: Circulation, motion, and sensation intact. Range of motion: intact in all extremities, Reports pain in left torres. Injury Description: Bruise sustained to outer aspect of right eyebrow, right supraorbital ridge and left torres Laceration sustained to outer aspect of right eyebrow is full thickness, 2.6 to 7.5 cm long, bleeding profusely, moderate bleeding noted at this time. A dressing was applied. Vital Signs: 18:55 BP 195 / 94; Pulse 89; Resp 17; Temp 98.7; Pulse Ox 99% ; Weight 65.77 kg; Height 5 ft. ap3 4 in. ; Pain 10/10; 19:14 BP 166 / 86; Pulse 71; Resp 17; Pulse Ox 98% on R/A; dd2 20:15 BP 180 / 94; Pulse 68; Resp 18; Pulse Ox 100% on R/A; dd2 21:00 BP 173 / 94; Pulse 79; Resp 18; Pulse Ox 100% on R/A; dd2 22:00 BP 112 / 57; Pulse 52; Resp 16; Pulse Ox 100% on R/A; dd2 22:41 BP 137 / 82; Pulse 75; Resp 16; Pulse Ox 100% on R/A; dd2 18:55 Body Mass Index 24.89 (65.77 kg, 162.56 cm) ap3 18:55 Pain Scale: Adult ap3 Mullen Coma Score: 18:55 Eye Response: spontaneous(4). Motor Response: obeys commands(6). Verbal Response: ap3 oriented(5). Total: 15. 19:14 Eye Response: spontaneous(4). Motor Response: obeys commands(6). Verbal Response: dd2 oriented(5). Total: 15. 19:20 Eye Response: spontaneous(4). Motor Response: obeys commands(6). Verbal Response: cp oriented(5). Total: 15. ED Course: 18:47 Patient arrived in ED. mr 18:51 Pete Hawkins PA is PHCP. cp 18:51 Pily Vargas MD is Attending Physician. cp 18:57 Triage completed. ap3 18:59 Arm band placed on right wrist. ap3 18:59 Patient has correct armband on for positive identification. Bed in low position. Call ap3 light in reach. Adult w/ patient. Provided Education on: call light education. Door closed. Noise minimized. 19:14 JOHNATHAN HOLDER, RN is Primary Nurse. dd2 20:11 XRAY Tib Fib LEFT In Process Unspecified. EDMS 20:26 CT Head Brain wo Cont In Process Unspecified. EDMS 22:00 Assist provider with laceration repair on outer aspect of right eyebrow that was dd2 between 2.6 to 7.5 cm using sutures. Set up tray. Performed by Pete BAKER Dressed with 4X4s, tape Patient tolerated well. Patient maintains SpO2 saturation greater than 95% on room air. 22:41 Patient did not have IV access during this emergency room visit. dd2 12/15 20:23 Attending Physician role handed off by Pily Vargas MD cp 20:23 Primary Nurse role handed off by JOHNATHAN HOLDER RN cp Administered Medications: 12/14 19:34 Drug: HYDROcodone-acetaminophen PO 5 mg-325 mg 1 tabs PO once Route: PO; dd2 20:00 Follow up: Response: No adverse reaction dd2 19:34 Drug: LORazepam PO 1 mg PO once Route: PO; dd2 20:00 Follow up: Response: No adverse reaction dd2 22:17 Drug: Lidocaine Infiltration (2 %) 20 ml 5 ml Infiltration once; to bedside with dd2 epinephrine {Note: administered by nicolle christy.} Volume: 5 ml; Route: Infiltration; Site: wound; 22:32 Follow up: Response: No adverse reaction dd2 Medication: 22:45 VIS not applicable for this client. dd2 Outcome: 22:17 Discharge ordered by . cp 22:42 Discharged to home ambulatory, with family, dd2 22:42 Condition: stable 22:42 Discharge instructions given to patient, significant other, Instructed on discharge instructions, follow up and referral plans. medication usage, wound care, Demonstrated understanding of instructions, follow-up care, medications, wound care, Prescriptions given X 1, 22:45 Patient left the ED. dd2 05 20:56 Patient left the ED. cm10 Signatures: Dispatcher [employer] EDNM Madison Coughlin, Reg Reg mr Pete Hawkins PA PA cp Prokisch, Amanda, RN RN ap3 Paige Vallejo RN RN cm10 JOHNATHAN HOLDER, AC RN dd2
[2024-12-14 22:50] VITALS: TEMP 98.7
[2024-12-15 21:58] VITALS: O2SAT 100
[2024-12-15 22:03] VITALS: BP 137/82
== END 2024-12-15 20:56 | disposition home or self-care (01) ==
LOC: ER 18:45
DX: S01.81XA Laceration without foreign body of other part of head, initial encounter (principal); S80.12XA Contusion of left lower leg, initial encounter; W08.XXXA Fall from other furniture, initial encounter
CPT/HCPCS: 70450; 99284